=== PATIENT | female | born 1930 | race Caucasian/White ===

== ENCOUNTER 2018-01-20 11:25 | Inpatient (IN) | payer MEDICARE ==
[2018-01-20] MEDS ORDERED: hydrALAZINE 20 MG/ML VIAL SLOW IVP PRN (13:44)
[2018-01-20] MEDS ORDERED: Ondansetron PF 4 MG/2 ML Vial IVP PRN (13:44)
[2018-01-20] MEDS ORDERED: Labetalol HCl 100 MG/20 ML VIAL SLOW IVP PRN (13:44)
[2018-01-20 14:38] LABS: #Eosinphils 0.1 thou/uL (0.0-0.7); #Lymphocytes 0.8 thou/uL (1.20-3.40); #Monocytes 0.7 thou/uL (0.11-0.59); #Neutrophils 4.8 thou/uL (1.40-6.50); %Basophils 0.6 % (0.0-1.0); %Eosinophils 1.3 % (0.0-10.0); %Lymphocytes 12.8 % (21.0-51.0); %Monocytes 10.3 % (0.0-10.0); %Neutrophils 75.2 % (42.0-75.0); Hemoglobin 13.7 g/dL (12.0-16.0); Mean Corpuscular HGB CONC 32.9 g/dL (32.0-36.0); Mean Platelet Volume 8.8 fL (7.4-10.4); Platelet Count 135 thou/uL (130-400); RBC Distribution Width 12.2 % (11.5-14.5); Red Blood Cell (RBC) Count 4.16 mill/uL (4.20-5.40); White Blood Cell (WBC) Count 6.4 thou/uL (4.8-10.8)
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
[2018-01-20 14:59] LABS: Anion Gap 17 mmol/L (10-20); BUN (Urea Nitrogen) 27 mg/dL (9.8-20.1); Calc. Creatinine Clearance 0 mL/min (70-130); Calcium 9.7 mg/dL (7.8-10.44); Carbon Dioxide 19 mmol/L (23-31); Chloride 105 mmol/L (98-107); Estimated GFR-MDRD 62; Glucose 81 mg/dL (83-110); Potassium 3.8 mmol/L (3.5-5.1); Sodium 137 mmol/L (136-145)
[2018-01-20 16:22] VITALS: BMI 19.4
--- NOTE | 2018-01-20 20:51 | MRI ---
MRI BRAIN WITHOUT IV CONTRAST: HISTORY: An 87-year-old female with a history of right-sided weakness, stroke. COMPARISON: No prior imaging available. FINDINGS: There is marked atrophy and chronic white matter ischemic change, particularly involving the perivent ricular and centrum semiovale regions. There is a tiny, approximately 0.5 cm in diameter focal area of abnormal diffusion and an ADC map involving the right frontal white matter, anteriorly. There is also a small, approximately 0.9 cm in diameter, punctate focus of abnormal diffusion and associated a bnormal ADC map finding in the left centrum semiovale and subcortical region. These are consistent w ith very small, punctate, bilateral, primarily white matter infarcts. In addition, there is a small focus of acute infarct involving the left parietal convexity rouse matter. There are normal expected signal flow voids bilaterally. There is fairly extensive bilateral sinus mucosal disease, including the ethmoid and maxillary sinuses, as well as a focal nodular area, measuring 1.2 cm, in the left fro ntal sinus, probably some chronic mucosal disease. No significant mass effect or midline shift. No acute hemorrhage. IMPRESSION: 1. Multiple small, punctate, acute infarct changes, as above. 2. Chronic white matter ischemic changes bilaterally. 3. Sinus mucosal changes, as above. POS: LATISHA
[2018-01-20] MEDS: Acetaminophen 325 MG TAB PO PRN (21:49)
[2018-01-20] MEDS: Atorvastatin Calcium 40 MG TAB PO SCH (22:13)
--- NOTE | 2018-01-21 01:04 | CON ---
DATE OF CONSULTATION: 01/20/2018 TYPE OF CONSULTATION: Neurology Consultation CONSULTING PHYSICIAN: Hospitalist Service. IMPRESSION: 1. Probable lacunar stroke with right hemiparesis. 2. Hypertension. 3. Aspirin failure. PLAN: 1. Add statin. 2. Add Plavix. 3. MRI of the brain. 4. Carotid ultrasound. 5. Echocardiogram. 6. PT, OT evaluations and determine whether she is a candidate for rehab versus care home. HISTORY OF PRESENT ILLNESS: Ms. Alanis is an 87-year-old white female who came in after being found unable to get up from her bed. She had urinated on herself in an attempt to try to get out of bed. Family noticed that she was not able to use her right arm effectively. She was taken to [place] for evaluation. Her initial CT scan of the brain did not show any evidence of a hemorrhage. She was transferred here for care. She has not seen any significant improvement in the strength since her transfer. She is not reporting any difficulty with speaking or swallowing. She denies any numbness of the right side. She has not had past history of stroke-like symptoms. PAST MEDICAL HISTORY: Hypertension. FAMILY HISTORY: Noncontributory. SOCIAL HISTORY: No tobacco use. MEDICATIONS: List was reviewed. REVIEW OF SYSTEMS: No complaint of headache, nausea, vomiting, vertigo, double vision, acute vision loss, or loss of consciousness. PHYSICAL EXAMINATION: GENERAL: She is a thin, elderly lady in no acute distress. VITAL SIGNS: Blood pressure 179/81, respirations 16, pulse 68, temperature 97.3. HEENT: Pupils are equal and reactive. Conjunctivae clear. Oropharynx clear. NECK: Supple. No lymphadenopathy. EXTREMITIES: No cyanosis. NEUROLOGIC: She was alert and cooperative. Her speech is fluent and clear. There is a very subtle right facial droop. MOTOR: Showed no movement in the right upper extremity. She was able to withdraw the right lower extremity with stimulation. Sensation was intact to touch. No tremor or dysmetria was present. Gait was not testable. SUMMARY: This is an elderly lady with acute stroke with only motor involvement. I suspect that it is probably a small vessel stroke. Would proceed with testing and treatment as noted above. Job ID: [id number]
[2018-01-21 06:19] LABS: Cardiac Risk 4.4 (Less than 4.5)
[2018-01-21] MEDS ORDERED: Enoxaparin Sodium 40 MG/0.4 ML SYRINGE SC SCH (09:00)
[2018-01-21] MEDS: Enoxaparin Sodium 40 MG/0.4 ML SYRINGE SC SCH (09:51)
[2018-01-21] MEDS: Aspirin 325 mg Enteric Coated Tablet PO SCH (09:52)
[2018-01-21] MEDS ORDERED: Polyethylene Glycol 3350 17 GM Packet PO PRN (11:44)
--- NOTE | 2018-01-21 11:49 | PDOC.PN ---
- Subjective Encounter Start Date: 01/21/18 Encounter Start Time: 11:47 Subjective: alert, oriented, increased fcn R side - Objective Resuscitation Status - Order Detail: 01/20/18 13:10 Resuscitation Status Routine Resuscitation Status: DNAR: NO Resuscitation Discussed with: discussed with 3 of her children MAR Reviewed: Yes Vital Signs & Weight: Vital Signs (12 hours) Temp Pulse Pulse Resp BP BP Pulse Ox 01/21/18 11:46 97.8 F 67 16 172/75 H 98 01/21/18 08:55 69 126/61 01/21/18 08:00 97.8 F 74 18 150/67 H 95 01/21/18 04:00 97.6 F 72 18 168/74 H 96 01/21/18 00:00 97.6 F 71 18 138/64 95 Weight Weight 124 lb Result Diagrams: 01/20/18 11:33 01/20/18 11:33 Additional Labs: Accuchecks 01/20/18 11:31 POC Glucose 84 Phys Exam - Physical Examination Neck: no JVD Respiratory: clear to auscultation bilateral Cardiovascular: RRR, no significant murmur Gastrointestinal: soft, positive bowel sounds Musculoskeletal: no edema R hemiplegia Dx/Plan (1) CVA (cerebral vascular accident) Code(s): I63.9 - CEREBRAL INFARCTION, UNSPECIFIED Status: Acute Qualifiers: CVA mechanism: thrombosis Precerebral and cerebral artery: middle cerebral artery Laterality of affected vessel: left Qualified Code(s): I63.312 - Cerebral infarction due to thrombosis of left middle cerebral artery (2) Hemiplegia affecting right dominant side Code(s): G81.91 - HEMIPLEGIA, UNSPECIFIED AFFECTING RIGHT DOMINANT SIDE Status : Acute Qualifiers: Hemiplegia type: flaccid Cerebrovascular disease type: cerebral infarction (3) HTN (hypertension) Code(s): I10 - ESSENTIAL (PRIMARY) HYPERTENSION Status: Chronic Qualifiers: Hypertension type: essential hypertension Qualified Code(s): I10 - Essential (primary) hypertension (4) Dyslipidemia Code(s): E78.5 - HYPERLIPIDEMIA, UNSPECIFIED Status: Acute - Plan cont asa, statin -: institute home BP meds -: cont PT/OT -: rehab eventually * .
[2018-01-21] MEDS: Carvedilol 6.25 MG TAB PO SCH (20:31)
[2018-01-21] MEDS: Atorvastatin Calcium 40 MG TAB PO SCH (20:31)
[2018-01-22] MEDS: Enoxaparin Sodium 40 MG/0.4 ML SYRINGE SC SCH (09:10)
[2018-01-22] MEDS: Lisinopril/Hydrochlorothiazide 20 mg/12.5 mg Tablet PO SCH (09:12)
[2018-01-22] MEDS: Carvedilol 6.25 MG TAB PO SCH ×2 (09:13→21:45)
[2018-01-22] MEDS: Aspirin 325 mg Enteric Coated Tablet PO SCH (09:13)
--- NOTE | 2018-01-22 10:11 | CT ---
CT HEAD WITHOUT CONTRAST: Date: 01/22/18 Multiple axial tomograms obtained through the head without IV enhancement. INDICATION: Mental status change. CVA. Correlation made to MRI of 01/20/18. That exam revealed at least two foci of acute lacunar infarcts i n the white matter of the right frontal lobe and left periventricular white matter. There was also a tiny focus of cortical infarct in the left precentral gyrus. FINDINGS: Diffuse low white matter attenuation bilaterally is consistent with moderately severe chronic ischemi c white matter change. The area of acute lacunar infarct seen on MRI are not definitely apparent by C T. The tiny focus of cortical infarct seen on MRI is not apparent by CT. There is no hemorrhage or ma ss effect. IMPRESSION: There is severe chronic ischemic white matter change. Acute lacunar infarcts in the white matter of b oth hemispheres is described on MRI of 01/20/18. These focal lacunar infarcts are not apparent by CT. There is no evidence of edema, hemorrhage, or cortical infarct by CT. POS: LETICIA
[2018-01-22] MEDS ORDERED: Clopidogrel Bisulfate 300 MG TAB PO SCH (11:45)
--- NOTE | 2018-01-22 12:25 | PDOC.PN ---
- Subjective Encounter Start Date: 01/22/18 Encounter Start Time: 12:23 Subjective: decreased alertness, decreased strength in L leg - Objective Resuscitation Status - Order Detail: 01/20/18 13:10 Resuscitation Status Routine Resuscitation Status: DNAR: NO Resuscitation Discussed with: discussed with 3 of her children MAR Reviewed: Yes Vital Signs & Weight: Vital Signs (12 hours) Temp Pulse Resp BP BP Pulse Ox 01/22/18 11:38 99.8 F H 88 18 132/60 94 L 01/22/18 09:12 70 01/22/18 07:51 97.9 F 70 20 133/67 92 L 01/22/18 06:44 90 198/88 H 01/22/18 03:45 100.2 F H 90 16 198/88 H 92 L Weight Weight 124 lb I&O: 01/21/18 01/22/18 01/23/18 06:59 06:59 06:59 Output Total 400 Balance -400 Result Diagrams: 01/20/18 11:33 01/20/18 11:33 Additional Labs: Accuchecks 01/22/18 01/21/18 07:24 16:26 POC Glucose 117 H 94 Radiology Reviewed by me: Yes (CT brain- no acuts bleed) Phys Exam - Physical Examination Constitutional: NAD Neck: no JVD Respiratory: clear to auscultation bilateral Cardiovascular: RRR, no significant murmur Gastrointestinal: soft, positive bowel sounds Musculoskeletal: no edema flaccid right hemiplegia Dx/Plan (1) CVA (cerebral vascular accident) Code(s): I63.9 - CEREBRAL INFARCTION, UNSPECIFIED Status: Acute Qualifiers: CVA mechanism: thrombosis Precerebral and cerebral artery: middle cerebral artery Laterality of affected vessel: left Qualified Code(s): I63.312 - Cerebral infarction due to thrombosis of left middle cerebral artery (2) Hemiplegia affecting right dominant side Code(s): G81.91 - HEMIPLEGIA, UNSPECIFIED AFFECTING RIGHT DOMINANT SIDE Status : Acute Qualifiers: Hemiplegia type: flaccid Cerebrovascular disease type: cerebral infarction (3) HTN (hypertension) Code(s): I10 - ESSENTIAL (PRIMARY) HYPERTENSION Status: Chronic Qualifiers: Hypertension type: essential hypertension Qualified Code(s): I10 - Essential (primary) hypertension (4) Dyslipidemia Code(s): E78.5 - HYPERLIPIDEMIA, UNSPECIFIED Status: Acute - Plan due to decreaed fcn end no bleess on CT, have given plavix 300mh, start 75 -: po in am -: cont asa, statin * .
[2018-01-22] MEDS: Atorvastatin Calcium 40 MG TAB PO SCH (21:45)
[2018-01-23] MEDS: Enoxaparin Sodium 40 MG/0.4 ML SYRINGE SC SCH (09:08)
[2018-01-23] MEDS: Lisinopril/Hydrochlorothiazide 20 mg/12.5 mg Tablet PO SCH (09:08)
[2018-01-23] MEDS: Clopidogrel Bisulfate 75 MG TAB PO SCH (09:10)
[2018-01-23] MEDS: Carvedilol 6.25 MG TAB PO SCH ×2 (09:10→22:39)
[2018-01-23] MEDS: Aspirin 325 mg Enteric Coated Tablet PO SCH (09:11)
[2018-01-23 09:36] LABS: #Monocytes 0.7 thou/uL (0.11-0.59); #Neutrophils 4.8 thou/uL (1.40-6.50); %Basophils 0.7 % (0.0-1.0); %Eosinophils 0.3 % (0.0-10.0); %Monocytes 10.7 % (0.0-10.0); %Neutrophils 73.4 % (42.0-75.0); Hemoglobin 12.1 g/dL (12.0-16.0); Mean Corpuscular HGB CONC 33.5 g/dL (32.0-36.0); Mean Corpuscular Hemoglobin 33.2 pg (27.0-31.0); Mean Platelet Volume 7.3 fL (7.4-10.4); Platelet Count 195 thou/uL (130-400); Red Blood Cell (RBC) Count 3.66 mill/uL (4.20-5.40); White Blood Cell (WBC) Count 6.6 thou/uL (4.8-10.8)
[2018-01-23 09:54] LABS: Anion Gap 12 mmol/L (10-20); BUN (Urea Nitrogen) 45 mg/dL (9.8-20.1); Calc. Creatinine Clearance 27 mL/min (70-130); Calcium 9.2 mg/dL (7.8-10.44); Carbon Dioxide 26 mmol/L (23-31); Chloride 104 mmol/L (98-107); Estimated GFR-MDRD 40; Glucose 108 mg/dL (83-110); Potassium 3.3 mmol/L (3.5-5.1); Sodium 139 mmol/L (136-145)
--- NOTE | 2018-01-23 12:38 | PDOC.PN ---
- Subjective Encounter Start Date: 01/23/18 Encounter Start Time: 07:00 Pt seen for followup re: ischemic CVA. Denies chest pain, shortness of breath, fevers or chills. - Objective Resuscitation Status - Order Detail: 01/20/18 13:10 Resuscitation Status Routine Resuscitation Status: DNAR: NO Resuscitation Discussed with: discussed with 3 of her children MAR Reviewed: Yes Vital Signs & Weight: Vital Signs (12 hours) Temp Pulse Pulse Resp BP BP BP 01/23/18 10:14 56 L 93/59 L 01/23/18 09:10 110/52 L 01/23/18 09:08 68 01/23/18 08:00 98.2 F 68 14 105/52 L 01/23/18 03:39 97.8 F 68 16 127/60 Pulse Ox 01/23/18 10:14 01/23/18 09:10 01/23/18 09:08 01/23/18 08:00 91 L 01/23/18 03:39 93 L Weight Weight 124 lb I&O: 01/22/18 01/23/18 01/24/18 06:59 06:59 06:59 Intake Total 100 100 Output Total 400 650 Balance -400 -550 100 Result Diagrams: 01/23/18 09:22 01/23/18 09:22 EKG Reviewed by me: Yes (Tele: NSR with PACs) Phys Exam - Physical Examination Constitutional: NAD HEENT: moist MMs Neck: supple Respiratory: clear to auscultation bilateral Cardiovascular: RRR Gastrointestinal: soft Right sided weakness Psychiatric: normal affect Dx/Plan (1) Ischemic cerebrovascular accident (CVA) Code(s): I63.9 - CEREBRAL INFARCTION, UNSPECIFIED Status: Acute Comment: continue aspirin, Plavix, statin. (2) Dyslipidemia Code(s): E78.5 - HYPERLIPIDEMIA, UNSPECIFIED Status: Acute Comment: continue statin (3) HTN (hypertension) Code(s): I10 - ESSENTIAL (PRIMARY) HYPERTENSION Status: Chronic Qualifiers: Hypertension type: essential hypertension Qualified Code(s): I10 - Essential (primary) hypertension Comment: controlled - Plan * . Review of Systems - Review of Systems Respiratory: negative: Cough, Dry, Shortness of Breath, Hemoptysis, SOB with Excertion, Pleuritic Pain, Sputum Cardiovascular: negative: chest pain, palpitations, orthopnea, paroxysmal nocturnal dyspnea, edema, light headedness Neurological: Weakness - Medications/Allergies Allergies/Adverse Reactions: Allergies Allergy/AdvReac Type Severity Reaction Status Date / Time No Known Drug Allergies Allergy Verified 01/22/18 09:04 Medications: Current Medications Acetaminophen (Tylenol) 650 mg PO Q4H PRN PRN Reason: Headache/Fever/Mild Pain (1-3) Last Admin: 01/20/18 21:49 Dose: 650 mg Aspirin (Ecotrin) 325 mg PO DAILY [facility] Last Admin: 01/23/18 09:11 Dose: 325 mg Atorvastatin Calcium (Lipitor) 40 mg PO HS [facility] Last Admin: 01/22/18 21:45 Dose: 40 mg Carvedilol (Coreg) 6.25 mg PO BID [facility] Last Admin: 01/23/18 09:10 Dose: 6.25 mg Clopidogrel Bisulfate (Plavix) 75 mg PO DAILY [facility] Last Admin: 01/23/18 09:10 Dose: 75 mg Enoxaparin Sodium (Lovenox) 40 mg SC 0900 [facility] Last Admin: 01/23/18 09:08 Dose: 40 mg Lisinopril/HCTZ (Prinizide 20-12.5) 1 tab PO DAILY [facility] Last Admin: 01/23/18 09:08 Dose: Not Given Hydralazine HCl (Apresoline) 10 mg SLOW IVP Q4H PRN PRN Reason: SBP Greater Than 180 Labetalol HCl (Normodyne) 20 mg SLOW IVP Q1H PRN PRN Reason: SBP Greater Than 180 Last Admin: 01/22/18 06:44 Dose: 20 mg Ondansetron HCl (Zofran) 4 mg IVP Q6H PRN PRN Reason: Nausea/Vomiting Last Admin: 01/22/18 07:17 Dose: 4 mg Polyethylene Glycol (Miralax) 17 gm PO DAILY PRN PRN Reason: Constipation Sodium Chloride (Flush - Normal Saline) 10 ml IVF PRN PRN PRN Reason: Saline Flush
--- NOTE | 2018-01-23 13:11 | ULT ---
BILATERAL CAROTID DUPLEX ULTRASOUND: DATE: 01/23/18 HISTORY: CVA. TECHNIQUE: Moore scale ultrasound with color flow and spectral Doppler imaging of the extracranial carotid artery systems performed. FINDINGS: There is plaque formation on either side. The peak systolic velocity in the right ICA measures 71 cm/second with an end-diastolic velocity of 1 0 cm/second and a systolic ratio of 1.01. The peak systolic velocity in the left ICA measures 64 cm/second with an end-diastolic velocity of 15 cm/second and a systolic ratio of 0.96. Flow in both vertebral arteries remains antegrade. IMPRESSION: No evidence of hemodynamically significant stenosis. POS: LATISHA
[2018-01-23] MEDS: Sodium Chloride 0.9% 1,000 ML IV SCH (14:47)
[2018-01-23 15:08] LABS: Bilirubin Small (Negative); Blood, Urine Small (Negative); Clarity CLOUDY (Clear); Glucose, Urine (Dipstick) Negative (Negative); Leukocyte Moderate (Negative); Nitrite Negative (Negative); Protein, Urine (Dipstick) Trace mg/dL (Neg-Trace); Specific Gravity, Urine 1.017 (1.002-1.036); Urobilinogen 0.2 mg/dL (0.2-1.0)
[2018-01-23 15:11] LABS: Bacteria/HPF 4+ HPF (None Seen); Hyaline Casts/LPF 4-6 HYALINE CAST LPF (0-3 Hyaline); Pathc Cast-AUWi Flag 0.14 (0-2.49); Squamous Epithelial None Seen HPF (0-3); WBC/HPF 21-50 HPF (0-3)
[2018-01-23] MEDS: cefTRIAXone\\ROCEPHIN 1 GM in Sodium Chloride 0.9% 100 ML IVPB SCH (17:42)
[2018-01-23] MEDS: Atorvastatin Calcium 40 MG TAB PO SCH (22:39)
[2018-01-24 05:53] LABS: #Lymphocytes 1.2 thou/uL (1.20-3.40); #Monocytes 0.7 thou/uL (0.11-0.59); #Neutrophils 5.3 thou/uL (1.40-6.50); %Basophils 0.2 % (0.0-1.0); %Eosinophils 0.5 % (0.0-10.0); %Lymphocytes 16.8 % (21.0-51.0); %Monocytes 9.1 % (0.0-10.0); %Neutrophils 73.2 % (42.0-75.0); Hemoglobin 11.7 g/dL (12.0-16.0); Mean Corpuscular Hemoglobin 32.7 pg (27.0-31.0); Mean Platelet Volume 7.3 fL (7.4-10.4); Platelet Count 182 thou/uL (130-400); RBC Distribution Width 11.9 % (11.5-14.5); Red Blood Cell (RBC) Count 3.58 mill/uL (4.20-5.40); White Blood Cell (WBC) Count 7.2 thou/uL (4.8-10.8)
[2018-01-24 06:03] LABS: Anion Gap 11 mmol/L (10-20); BUN (Urea Nitrogen) 43 mg/dL (9.8-20.1); Calc. Creatinine Clearance 38 mL/min (70-130); Calcium 8.7 mg/dL (7.8-10.44); Carbon Dioxide 23 mmol/L (23-31); Chloride 108 mmol/L (98-107); Estimated GFR-MDRD 60; Glucose 94 mg/dL (83-110); Sodium 139 mmol/L (136-145)
[2018-01-24] MEDS: Sodium Chloride 0.9% 1,000 ML IV SCH (06:06)
[2018-01-24] MEDS: Potassium Chloride 20 MEQ TAB PO SCH ×2 (09:03→12:52)
[2018-01-24] MEDS: Aspirin 325 mg Enteric Coated Tablet PO SCH (09:04)
[2018-01-24] MEDS: Clopidogrel Bisulfate 75 MG TAB PO SCH (09:04)
[2018-01-24] MEDS: Lisinopril/Hydrochlorothiazide 20 mg/12.5 mg Tablet PO SCH (09:04)
[2018-01-24] MEDS: Carvedilol 6.25 MG TAB PO SCH ×2 (09:05→21:34)
[2018-01-24] MEDS: Enoxaparin Sodium 40 MG/0.4 ML SYRINGE SC SCH (09:05)
--- NOTE | 2018-01-24 14:14 | PDOC.PN ---
- Subjective Encounter Start Date: 01/24/18 Encounter Start Time: 07:00 Pt seen for followup re: ischemic CVA. Denies chest pain, shortness of breath, fevers or chills. - Objective Resuscitation Status - Order Detail: 01/20/18 13:10 Resuscitation Status Routine Resuscitation Status: DNAR: NO Resuscitation Discussed with: discussed with 3 of her children MAR Reviewed: Yes Vital Signs & Weight: Vital Signs (12 hours) Temp Pulse Resp BP BP Pulse Ox 01/24/18 12:00 98 F 75 20 122/60 93 L 01/24/18 09:05 173/75 H 01/24/18 09:04 93 173/75 H 01/24/18 08:57 93 L 01/24/18 07:53 98.1 F 75 20 173/75 H 93 L 01/24/18 04:17 98.2 F 67 20 120/58 L 93 L 01/24/18 02:37 98.4 F 74 20 131/60 95 Weight Weight 124 lb I&O: 01/23/18 01/24/18 01/25/18 06:59 06:59 06:59 Intake Total 100 390 770 Output Total 650 250 400 Balance -550 140 370 Result Diagrams: 01/24/18 05:31 01/24/18 05:31 EKG Reviewed by me: Yes (Tele: NSR) Phys Exam - Physical Examination Constitutional: NAD HEENT: moist MMs Neck: supple Respiratory: clear to auscultation bilateral Cardiovascular: RRR Gastrointestinal: soft Neurological: moves all 4 limbs Psychiatric: normal affect Dx/Plan (1) Ischemic cerebrovascular accident (CVA) Code(s): I63.9 - CEREBRAL INFARCTION, UNSPECIFIED Status: Acute Comment: on aspirin, Plavix, statin. (2) UTI (urinary tract infection) Status: Acute Comment: continue ceftriaxone, await culture (3) Dyslipidemia Code(s): E78.5 - HYPERLIPIDEMIA, UNSPECIFIED Status: Chronic Comment: on statin (4) HTN (hypertension) Code(s): I10 - ESSENTIAL (PRIMARY) HYPERTENSION Status: Chronic Qualifiers: Hypertension type: essential hypertension Qualified Code(s): I10 - Essential (primary) hypertension Comment: controlled - Plan * . Review of Systems - Review of Systems Cardiovascular: negative: chest pain, palpitations, orthopnea, paroxysmal nocturnal dyspnea, edema, light headedness Gastrointestinal: negative: Nausea, Vomiting, Abdominal Pain, Diarrhea, Constipation, Melena, Hematochezia - Medications/Allergies Allergies/Adverse Reactions: Allergies Allergy/AdvReac Type Severity Reaction Status Date / Time No Known Drug Allergies Allergy Verified 01/22/18 09:04 Medications: Current Medications Acetaminophen (Tylenol) 650 mg PO Q4H PRN PRN Reason: Headache/Fever/Mild Pain (1-3) Last Admin: 01/20/18 21:49 Dose: 650 mg Aspirin (Ecotrin) 325 mg PO DAILY [facility] Last Admin: 01/24/18 09:04 Dose: 325 mg Atorvastatin Calcium (Lipitor) 40 mg PO HS [facility] Last Admin: 01/23/18 22:39 Dose: 40 mg Carvedilol (Coreg) 6.25 mg PO BID [facility] Last Admin: 01/24/18 09:05 Dose: 6.25 mg Clopidogrel Bisulfate (Plavix) 75 mg PO DAILY [facility] Last Admin: 01/24/18 09:04 Dose: 75 mg Enoxaparin Sodium (Lovenox) 40 mg SC 0900 [facility] Last Admin: 01/24/18 09:05 Dose: 40 mg Lisinopril/HCTZ (Prinizide 20-12.5) 1 tab PO DAILY [facility] Last Admin: 01/24/18 09:04 Dose: 1 tab Hydralazine HCl (Apresoline) 10 mg SLOW IVP Q4H PRN PRN Reason: SBP Greater Than 180 Ceftriaxone Sodium 1 gm/ (Sodium Chloride) 100 mls @ 200 mls/hr IVPB Q24HR [facility] Last Admin: 01/23/18 17:42 Dose: 100 mls Potassium Chloride/Sodium Chloride (Ns 0.9% W/ 20 Meq Kcl) 1,000 ml in 1,000 mls @ 100 mls/hr IV .Q10H [facility] Labetalol HCl (Normodyne) 20 mg SLOW IVP Q1H PRN PRN Reason: SBP Greater Than 180 Last Admin: 01/22/18 06:44 Dose: 20 mg Ondansetron HCl (Zofran) 4 mg IVP Q6H PRN PRN Reason: Nausea/Vomiting Last Admin: 01/22/18 07:17 Dose: 4 mg Polyethylene Glycol (Miralax) 17 gm PO DAILY PRN PRN Reason: Constipation Sodium Chloride (Flush - Normal Saline) 10 ml IVF PRN PRN PRN Reason: Saline Flush
[2018-01-24] MEDS: NS 0.9% w/ 20 MEQ KCL 1,000 ML/1,000 ML BAG IV SCH (14:15)
[2018-01-24] MEDS: cefTRIAXone\\ROCEPHIN 1 GM in Sodium Chloride 0.9% 100 ML IVPB SCH (17:35)
[2018-01-24] MEDS: Atorvastatin Calcium 40 MG TAB PO SCH (21:34)
[2018-01-25] MEDS: NS 0.9% w/ 20 MEQ KCL 1,000 ML/1,000 ML BAG IV SCH ×2 (01:07→09:22)
[2018-01-25 05:35] LABS: #Eosinphils 0.1 thou/uL (0.0-0.7); #Lymphocytes 1.1 thou/uL (1.20-3.40); #Monocytes 0.6 thou/uL (0.11-0.59); #Neutrophils 3.8 thou/uL (1.40-6.50); %Basophils 0.3 % (0.0-1.0); %Eosinophils 1.3 % (0.0-10.0); %Lymphocytes 20.3 % (21.0-51.0); %Monocytes 10.5 % (0.0-10.0); %Neutrophils 67.6 % (42.0-75.0); Hemoglobin 12.3 g/dL (12.0-16.0); Mean Corpuscular HGB CONC 33.6 g/dL (32.0-36.0); Mean Corpuscular Hemoglobin 33.2 pg (27.0-31.0); Mean Corpuscular Volume 98.7 fL (78.0-98.0); Mean Platelet Volume 7.7 fL (7.4-10.4); Platelet Count 194 thou/uL (130-400); RBC Distribution Width 11.8 % (11.5-14.5); Red Blood Cell (RBC) Count 3.71 mill/uL (4.20-5.40); White Blood Cell (WBC) Count 5.6 thou/uL (4.8-10.8)
[2018-01-25 05:43] LABS: Anion Gap 13 mmol/L (10-20); BUN (Urea Nitrogen) 25 mg/dL (9.8-20.1); Calc. Creatinine Clearance 48 mL/min (70-130); Calcium 8.9 mg/dL (7.8-10.44); Carbon Dioxide 19 mmol/L (23-31); Chloride 110 mmol/L (98-107); Estimated GFR-MDRD 78; Glucose 86 mg/dL (83-110); Potassium 4.1 mmol/L (3.5-5.1); Sodium 138 mmol/L (136-145)
[2018-01-25] MEDS: Acetaminophen 325 MG TAB PO PRN (06:18)
[2018-01-25] MEDS: Aspirin 325 mg Enteric Coated Tablet PO SCH ×2 (09:20→17:13)
[2018-01-25] MEDS: Carvedilol 6.25 MG TAB PO SCH ×2 (09:21→21:39)
[2018-01-25] MEDS: Clopidogrel Bisulfate 75 MG TAB PO SCH (09:21)
[2018-01-25] MEDS: Lisinopril/Hydrochlorothiazide 20 mg/12.5 mg Tablet PO SCH (09:21)
[2018-01-25] MEDS: Enoxaparin Sodium 40 MG/0.4 ML SYRINGE SC SCH (09:27)
--- NOTE | 2018-01-25 09:58 | RAD ---
SINGLE VIEW OF THE CHEST: COMPARISON: None. HISTORY: Shortness of breath and fever. FINDINGS: A single view of the chest shows an enlarged cardiomediastinal silhouette with atherosclerotic calcif ications in the aorta. Increased interstitial lung markings are present. There is no evidence of co nsolidation, mass, or pleural effusion. Degenerative changes are seen in the spine and shoulders. IMPRESSION: No evidence of acute cardiopulmonary disease. POS: [facility]
--- NOTE | 2018-01-25 10:54 | PDOC.PN ---
- Subjective Encounter Start Date: 01/25/18 Encounter Start Time: 07:00 Pt seen for followup re: ischemic CVA. Cough+. No sputum. No nausea or vomiting. - Objective Resuscitation Status - Order Detail: 01/20/18 13:10 Resuscitation Status Routine Resuscitation Status: DNAR: NO Resuscitation Discussed with: discussed with 3 of her children MAR Reviewed: Yes Vital Signs & Weight: Vital Signs (12 hours) Temp Pulse Resp BP BP Pulse Ox 01/25/18 09:21 83 196/82 H 01/25/18 08:00 97.6 F 83 16 141/67 H 96 01/25/18 06:19 77 196/82 H 01/25/18 03:15 97.9 F 71 18 170/77 H 93 L 01/25/18 00:10 97.4 F L 93 20 140/65 70 L Weight Weight 124 lb I&O: 01/24/18 01/25/18 01/26/18 06:59 06:59 06:59 Intake Total 390 2010 Output Total 250 400 Balance 140 1610 Result Diagrams: 01/25/18 05:02 01/25/18 05:02 Additional Labs: Accuchecks 01/25/18 06:51 POC Glucose 84 EKG Reviewed by me: Yes (Tele: NSR) Phys Exam - Physical Examination Constitutional: NAD HEENT: moist MMs Neck: supple Respiratory: clear to auscultation bilateral Cardiovascular: RRR Gastrointestinal: soft Neurological: moves all 4 limbs Psychiatric: normal affect Dx/Plan (1) Ischemic cerebrovascular accident (CVA) Code(s): I63.9 - CEREBRAL INFARCTION, UNSPECIFIED Status: Acute Comment: will continue aspirin, Plavix, statin. (2) UTI (urinary tract infection) Status: Acute Comment: await urine culture, pt is on ceftriaxone (presumptive Kleb/Enterobacter) (3) Dyslipidemia Code(s): E78.5 - HYPERLIPIDEMIA, UNSPECIFIED Status: Chronic Comment: will continue statin (4) HTN (hypertension) Code(s): I10 - ESSENTIAL (PRIMARY) HYPERTENSION Status: Chronic Qualifiers: Hypertension type: essential hypertension Qualified Code(s): I10 - Essential (primary) hypertension Comment: add scheduled hydralazine - Plan * . Review of Systems - Review of Systems Respiratory: Cough, Dry. negative: Shortness of Breath, Hemoptysis, SOB with Excertion, Pleuritic Pain, Sputum, Wheezing Gastrointestinal: negative: Nausea, Vomiting, Abdominal Pain, Diarrhea, Constipation, Melena, Hematochezia - Medications/Allergies Allergies/Adverse Reactions: Allergies Allergy/AdvReac Type Severity Reaction Status Date / Time No Known Drug Allergies Allergy Verified 01/22/18 09:04 Medications: Current Medications Acetaminophen (Tylenol) 650 mg PO Q4H PRN PRN Reason: Headache/Fever/Mild Pain (1-3) Last Admin: 01/25/18 06:18 Dose: 650 mg Aspirin (Ecotrin) 325 mg PO DAILY [facility] Last Admin: 01/25/18 09:20 Dose: Not Given Atorvastatin Calcium (Lipitor) 40 mg PO HS [facility] Last Admin: 01/24/18 21:34 Dose: 40 mg Carvedilol (Coreg) 6.25 mg PO BID [facility] Last Admin: 01/25/18 09:21 Dose: Not Given Clopidogrel Bisulfate (Plavix) 75 mg PO DAILY [facility] Last Admin: 01/25/18 09:21 Dose: Not Given Enoxaparin Sodium (Lovenox) 40 mg SC 0900 [facility] Last Admin: 01/25/18 09:27 Dose: 40 mg Lisinopril/HCTZ (Prinizide 20-12.5) 1 tab PO DAILY [facility] Last Admin: 01/25/18 09:21 Dose: Not Given Hydralazine HCl (Apresoline) 10 mg SLOW IVP Q4H PRN PRN Reason: SBP Greater Than 180 Last Admin: 01/25/18 06:19 Dose: 10 mg Ceftriaxone Sodium 1 gm/ (Sodium Chloride) 100 mls @ 200 mls/hr IVPB Q24HR [facility] Last Admin: 01/24/18 17:35 Dose: 100 mls Potassium Chloride/Sodium Chloride (Ns 0.9% W/ 20 Meq Kcl) 1,000 ml in 1,000 mls @ 100 mls/hr IV .Q10H [facility] Last Admin: 01/25/18 09:22 Dose: Not Given Labetalol HCl (Normodyne) 20 mg SLOW IVP Q1H PRN PRN Reason: SBP Greater Than 180 Last Admin: 01/22/18 06:44 Dose: 20 mg Ondansetron HCl (Zofran) 4 mg IVP Q6H PRN PRN Reason: Nausea/Vomiting Last Admin: 01/22/18 07:17 Dose: 4 mg Polyethylene Glycol (Miralax) 17 gm PO DAILY PRN PRN Reason: Constipation Sodium Chloride (Flush - Normal Saline) 10 ml IVF PRN PRN PRN Reason: Saline Flush
[2018-01-25] MEDS ORDERED: Furosemide 20 MG/2 ML VIAL SLOW IVP SCH (13:45)
[2018-01-25] MEDS: hydrALAZINE 25 MG TAB PO SCH ×2 (14:27→21:38)
[2018-01-25] MEDS: cefTRIAXone\\ROCEPHIN 1 GM in Sodium Chloride 0.9% 100 ML IVPB SCH (17:13)
[2018-01-25] MEDS: Atorvastatin Calcium 40 MG TAB PO SCH (21:38)
[2018-01-26 06:35] LABS: #Eosinphils 0.1 thou/uL (0.0-0.7); #Lymphocytes 1.2 thou/uL (1.20-3.40); #Monocytes 0.6 thou/uL (0.11-0.59); #Neutrophils 3.9 thou/uL (1.40-6.50); %Eosinophils 1.3 % (0.0-10.0); %Lymphocytes 20.3 % (21.0-51.0); %Monocytes 10.1 % (0.0-10.0); %Neutrophils 68.3 % (42.0-75.0); Hemoglobin 12.9 g/dL (12.0-16.0); Mean Corpuscular HGB CONC 33.5 g/dL (32.0-36.0); Mean Corpuscular Hemoglobin 32.9 pg (27.0-31.0); Mean Corpuscular Volume 98.1 fL (78.0-98.0); Mean Platelet Volume 7.5 fL (7.4-10.4); Platelet Count 241 thou/uL (130-400); RBC Distribution Width 11.8 % (11.5-14.5); Red Blood Cell (RBC) Count 3.91 mill/uL (4.20-5.40); White Blood Cell (WBC) Count 5.8 thou/uL (4.8-10.8)
[2018-01-26 06:46] LABS: Anion Gap 13 mmol/L (10-20); BUN (Urea Nitrogen) 32 mg/dL (9.8-20.1); Calc. Creatinine Clearance 39 mL/min (70-130); Calcium 9.4 mg/dL (7.8-10.44); Carbon Dioxide 23 mmol/L (23-31); Chloride 106 mmol/L (98-107); Estimated GFR-MDRD 62; Glucose 89 mg/dL (83-110); Potassium 3.4 mmol/L (3.5-5.1); Sodium 139 mmol/L (136-145)
[2018-01-26] MEDS ORDERED: Saccharomyces boulardii 250 MG CAP PO SCH (09:00)
[2018-01-26] MEDS: Lisinopril/Hydrochlorothiazide 20 mg/12.5 mg Tablet PO SCH (10:43)
[2018-01-26] MEDS: Enoxaparin Sodium 40 MG/0.4 ML SYRINGE SC SCH (10:43)
[2018-01-26] MEDS: Clopidogrel Bisulfate 75 MG TAB PO SCH (10:44)
[2018-01-26] MEDS: Aspirin 325 mg Enteric Coated Tablet PO SCH (10:44)
[2018-01-26] MEDS: hydrALAZINE 25 MG TAB PO SCH ×2 (10:44→15:19)
[2018-01-26] MEDS: Carvedilol 6.25 MG TAB PO SCH (10:44)
[2018-01-26 12:13] VITALS: BP 115/54; TEMP 97.1
[2018-01-26] MEDS ORDERED: Sodium Chloride 0.65% Nasal 44 ML BOT EA NARE PRN (14:58)
[2018-01-26] MEDS ORDERED: Potassium Chloride 20 MEQ TAB PO SCH (15:00)
[2018-01-26] MEDS ORDERED: Ciprofloxacin 500 MG TAB PO SCH (20:00)
[2018-01-26] MEDS ORDERED: Sodium Chloride 0.65% Nasal 44 ML BOT EA NARE SCH (21:00)
--- NOTE | 2018-01-27 03:52 | DIS ---
DATE OF ADMISSION: 01/20/2018 DATE OF DISCHARGE: 01/26/2018 PRIMARY CARE PROVIDER: Dr. Franklyn Han. DISCHARGE DIAGNOSES: 1. Acute bilateral ischemic cerebrovascular accident. 2. Klebsiella pneumoniae urinary tract infection. 3. Acute kidney injury. 4. Hypokalemia. CONDITION OF PATIENT ON THE DAY OF DISCHARGE: Stable. I assessed Ms. Alanis on the day of discharge. She denies any chest pain or shortness of breath. Vital signs are stable. S1 and S2 are heard, regular. Lungs are clear to auscultation bilaterally. DISCHARGE MEDICATIONS: 1. Aspirin 81 mg daily. 2. Coreg 6.25 mg two times a day. 3. Prinzide 20/12.5 mg daily. 4. Loperamide 2 mg as needed. 5. MiraLAX 17 g daily as needed. 6. Lipitor 40 mg at bedtime. 7. Ciprofloxacin 500 mg two times a day, 8 more doses. 8. Plavix 75 mg daily. 9. Hydralazine 25 mg three times a day. 10. Florastor 250 mg daily for four days. 11. Wilkes nasal spray one spray to each naris 3 times a day. 12. Tylenol Extra Strength 500 mg every 6 hours as needed. CONSULTATIONS DURING THIS HOSPITALIZATION: Neurology, Dr. Acosta. HOSPITAL COURSE: Ms. Alnais is a pleasant 87-year-old lady, who was admitted to [facility] on December 21, 2017, for acute ischemic cerebrovascular accident. Please refer to Dr. Alford' history and physical note dated January 20, 2018, for further details. MRI of the brain showed multiple small punctate acute infarct changes bilaterally. She was seen by Neurology Service, who recommended adding Plavix to her aspirin and adding statin. She had carotid Dopplers, which did not show any hemodynamically significant stenosis. She also had 2D echocardiogram, which showed left ventricular ejection fraction of 55% to 60%, mildly dilated left atrium, normal left ventricular size, impaired relaxation compatible with diastolic dysfunction, mild aortic regurgitation, and [id number] tricuspid regurgitation. No thrombus was noted in the cardiac chambers. She was seen by Therapy Services. She continued to have right-sided weakness. She is being discharged to [facility] for further management. On the day of discharge, she has sodium 139; potassium 3.4, which is being replaced. Blood urea nitrogen 32 and creatinine 0.86, which had improved from 1.26 on January 23, 2018. She has white count 5800, hemoglobin 12.9, and platelet count 241,000. Many thanks for allowing me to participate in your patient's care. Please feel free to contact me with any questions or concerns. DISCHARGE DESTINATION: [facility]. TOTAL AMOUNT OF TIME SPENT COORDINATING THIS DISCHARGE: 31 minutes. Job ID: [id number]
== END 2018-01-26 19:37 | DRG 65 ==
LOC: ERS 11:25 → ERHOLD 12:00 → 2SE 15:36
PROVIDERS: ADMIT Internal Medicine; ATTEND Internal Medicine
DX: I63.81 Other cerebral infarction due to occlusion or stenosis of small artery (principal); G81.91 Hemiplegia, unspecified affecting right dominant side; N39.0 Urinary tract infection, site not specified; I10 Essential (primary) hypertension; E78.5 Hyperlipidemia, unspecified; B96.1 Klebsiella pneumoniae [K. pneumoniae] as the cause of diseases classified elsewhere; E87.6 Hypokalemia
CPT/HCPCS: 36415; 36416; 70450; 70551; 71045; 80048; 80061; 81003; 81015; 85025; 87045; 87046; 87077; 87086; 87186; 87324; 87449; 87899; 93306; 93880; G8978-GP-CM; G8979-GP-CK; G8979-GP-CL; G8987-GO-CM; G8988-GO-CJ; G8988-GO-CK; G8996-GN-CJ; G8996-GN-CK; G8997-GN-CJ; J0360; J0696; J1650; J1940; J2405; J7050